=== PATIENT | female | born 1995 | race Asian ===

== ENCOUNTER 2021-04-18 11:51 | Emergency (ER) | payer OTHER ==
[~2021-04-18] VITALS: Ht 170.2 cm; Wt 56.2 kg
[2021-04-18 12:35] VITALS: BP 108/78
[2021-04-18] MEDS ORDERED: IBUP-2213 PO (13:10)
[2021-04-18] MEDS ORDERED: CEPH500C16 PO (13:10)
[2021-04-18 14:27] VITALS: BP 108/78
--- NOTE | 2021-04-18 14:28 | NUR ---
PT LEFT WITHOUT PAPERWORK.
== END 2021-04-18 14:28 | disposition home or self-care (01) ==
LOC: MED 11:51
DX: L02.91 Cutaneous abscess, unspecified (principal)
CPT/HCPCS: 99283